=== PATIENT | female | born 1965 | race Two or more races ===

== ENCOUNTER 2023-01-04 15:00 | Inpatient (IN) | payer OTHER ==
[~2023-01-04] VITALS: Ht 152.4 cm; Wt 64.6 kg
[2023-01-04] MEDS ORDERED: ONDANSETRON HCL 4 MG/2 ML VIAL IV ONE ×2 (15:15→16:15)
[2023-01-04] MEDS ORDERED: SODIUM CHLORIDE 0.9% 1,000 ML IV ONE ×2 (15:15→16:15)
[2023-01-04 15:46] LABS: Basophils # (auto) 0.1 10 ^3/uL (0-0.2); Basophils % (auto) 0.6 % (0.0-2.0); Eosinophils # (auto) 0.4 10 ^3/uL (0-0.8); Eosinophils % (auto) 4.8 % (0.0-7.0); Hemoglobin 12.8 g/dL (12.2-16.2); Lymphocytes % (auto) 25.6 % (10.0-50.0); Mean Corpuscular Hemoglobin 30.9 pg (28.0-32.0); Mean Corpuscular Hgb Conc. 33.8 g/dL (32.0-36.0); Mean Corpuscular Volume 91.5 fL (80.0-100.0); Monocytes # (auto) 0.7 10 ^3/uL (0-1.3); Monocytes % (auto) 8.4 % (0.0-12.0); Neutrophils # (auto) 4.8 10 ^3/uL (1.6-8.6); Neutrophils % (auto) 60.6 % (37.0-80.0); Nucleated Red Blood Cells % 0.2 %; Red Blood Cells 4.15 10^6/uL (4.0-5.20); Red Cell Distribution Width 13.8 % (11.8-14.3); White Blood Cell 7.9 10^3/uL (4.4-10.8)
[2023-01-04 16:03] LABS: Alanine Aminotransferase 16 U/L (7-40); Albumin 4.3 g/dL (3.2-4.8); Alkaline Phosphatase 61 U/L (46-116); Anion Gap 8 (5-15); Aspartate Aminotransferase 10 U/L (13-40); BUN/Creatinine Ratio 19.7 (10.0-20.0); Bilirubin, Total 0.4 mg/dL (0.2-1.0); Blood Urea Nitrogen 14 mg/dL (9-23); Calcium 9.2 mg/dL (8.7-10.4); Carbon Dioxide 24 mmol/L (20-30); Chloride 107 mmol/L (98-107); Glucose 92 mg/dL (74-106); Lipase 57 U/L (12-53); Sodium 139 mmol/L (136-145)
[2023-01-04 16:04] LABS: Total Protein 6.7 g/dL (5.7-8.2)
[2023-01-04 16:11] LABS: Urine Bacteria NONE SEEN /hpf (None Seen); Urine Blood TRACE /uL (Negative); Urine Clarity Clear (Clear); Urine Color Yellow (Yellow); Urine Mucus FEW (None Seen); Urine Protein, UAD Negative (Negative); Urine Specific Gravity 1.016 (1.001-1.035); Urine Urobilinogen Normal (Negative); Urine WBC 1 /hpf (0 - 5); Urine pH 5.5 (5.0-8.0)
[2023-01-04] MEDS ORDERED: metroNIDAZOLE 500MG/100ML 100 ML IV ONE (16:15)
[2023-01-04] MEDS ORDERED: SODIUM CHLORIDE 0.9% 1,000 ML IVB ONE (16:15)
[2023-01-04] MEDS ORDERED: MORPHINE SULFATE 4 MG/ML SYR/VIAL IV ONE (16:15)
[2023-01-04] MEDS ORDERED: levoFLOXacin 500MG 100 ML IV ONE (16:15)
[2023-01-04 16:48] LABS: INR 0.98 (0.9-1.15); Partial Thromboplastin Time 29.9 SEC (24.5-34.5); Prothrombin Time 10.3 sec (9.3-11.8)
[2023-01-04] MEDS ORDERED: MORPHINE SULFATE INJ 2 MG/ml SYRG IV PRN (21:15)
[2023-01-04] MEDS: D5W/SOD CHL 0.45% 1,000 ML IV SCH (21:15)
[2023-01-04] MEDS ORDERED: ONDANSETRON HCL 4 MG/2 ML VIAL IV PRN (21:15)
[2023-01-04] MEDS ORDERED: ACETAMINOPHEN 325 MG TAB PO PRN (21:15)
[2023-01-04 21:30] VITALS: PULSE 82; RESP 18; O2SAT 98
[2023-01-04] MEDS: metroNIDAZOLE 500MG/100ML 100 ML IV SCH (22:51)
[2023-01-05] VITALS (7 sets, daily range): BP systolic 93–117; BP diastolic 39–70; PULSE 64–92; RESP 12–20; TEMP 96.3–98.1; O2SAT 94–99
[2023-01-05] MEDS: D5W/SOD CHL 0.45% 1,000 ML IV SCH ×3 (00:17→20:01)
[2023-01-05] MEDS ORDERED: GABA-339 PO (01:56)
[2023-01-05] MEDS ORDERED: HYDR-4072 PO (01:56)
[2023-01-05] MEDS ORDERED: DULO1CAP4 PO (01:56)
[2023-01-05] MEDS: metroNIDAZOLE 500MG/100ML 100 ML IV SCH ×3 (06:05→21:32)
[2023-01-05 07:06] LABS: Alanine Aminotransferase 12 U/L (7-40); Alkaline Phosphatase 46 U/L (46-116); Anion Gap 3 (5-15); BUN/Creatinine Ratio 12.3 (10.0-20.0); Blood Urea Nitrogen 8 mg/dL (9-23); Calcium 8.6 mg/dL (8.7-10.4); Carbon Dioxide 27 mmol/L (20-30); Chloride 111 mmol/L (98-107); Glucose 82 mg/dL (74-106); Potassium 3.8 mmol/L (3.5-5.1); Sodium 141 mmol/L (136-145)
[2023-01-05 07:07] LABS: Albumin 3.7 g/dL (3.2-4.8); Aspartate Aminotransferase < 8 U/L (13-40); Bilirubin, Total 0.5 mg/dL (0.2-1.0)
[2023-01-05 07:29] LABS: Basophils # (auto) 0 10 ^3/uL (0-0.2); Basophils % (auto) 0.8 % (0.0-2.0); Eosinophils # (auto) 0.5 10 ^3/uL (0-0.8); Eosinophils % (auto) 10.2 % (0.0-7.0); Hematocrit 35.6 % (36.0-46.0); Hemoglobin 12.3 g/dL (12.2-16.2); Lymphocytes # (auto) 1.6 10 ^3/uL (0.4-5.4); Lymphocytes % (auto) 34.3 % (10.0-50.0); Mean Corpuscular Hemoglobin 31.5 pg (28.0-32.0); Mean Corpuscular Hgb Conc. 34.5 g/dL (32.0-36.0); Mean Corpuscular Volume 91.2 fL (80.0-100.0); Monocytes # (auto) 0.5 10 ^3/uL (0-1.3); Monocytes % (auto) 11.3 % (0.0-12.0); Neutrophils % (auto) 43.4 % (37.0-80.0); Nucleated Red Blood Cells % 0.1 %; Red Cell Distribution Width 13.2 % (11.8-14.3); White Blood Cell 4.6 10^3/uL (4.4-10.8)
[2023-01-05] MEDS ORDERED: LIDOCAINE 1%-Mpf/Epinephrine 1:200,000 30ml VIAL ONE (07:48)
[2023-01-05] MEDS ORDERED: BUPIVACAINE HCL 0.25% P/F 10 ML VIAL ONE (07:48)
[2023-01-05] MEDS ORDERED: ceFAZolin 1GM/50ML 100 ML IV ONE (07:52)
[2023-01-05] MEDS ORDERED: SUGAMMADEX 200mg/2ml Vial (100MG/ML) IV ONE (08:03)
[2023-01-05] MEDS ORDERED: HYDROmorphone HCL 2 MG/ML VL/or syr ONE (08:03)
[2023-01-05] MEDS ORDERED: MIDAZOLAM HCL 2MG/2ML 2ml VIAL (1mg/ml) ONE (08:03)
[2023-01-05] MEDS ORDERED: GLYCOPYRROLATE 0.2 MG/ML 1ML VIAL ONE (08:03)
[2023-01-05] MEDS ORDERED: LIDOCAINE 2% (LOCAL ANESTH.) PF 5ml SDV ONE (08:03)
[2023-01-05] MEDS ORDERED: fentaNYL CITRATE 100 MCG/2 ML VL ONE (08:03)
[2023-01-05] MEDS ORDERED: DexAMETHasone SOD PHOS 10MG/1ML VIAL INJ ONE (08:03)
[2023-01-05] MEDS ORDERED: ONDANSETRON HCL 4 MG/2 ML VIAL ONE (08:03)
[2023-01-05] MEDS ORDERED: KETOROLAC TROMETH 60MG/2ML VIAL ONE (08:03)
[2023-01-05] MEDS ORDERED: ROCURONIUM 10MG/ML 10ML VIAL IV ONE (08:03)
[2023-01-05] MEDS ORDERED: PROPOFOL 10 MG/ML 20 ML IV ONE (08:03)
[2023-01-05] MEDS ORDERED: ePHEDrine SULFATE 50 MG/ML AMP ONE (08:03)
[2023-01-05] MEDS ORDERED: ONDANSETRON HCL 4 MG/2 ML VIAL IV PRN (09:30)
[2023-01-05] MEDS ORDERED: HYDROmorphone HCL 2 MG/ML VL/or syr IV PRN (09:30)
[2023-01-05] MEDS: HYDROmorphone HCL 2 MG/ML VL/or syr IV PRN ×2 (13:14→21:34)
[2023-01-05] MEDS: HYDROcodone-ACET 5/325MG TAB PO PRN (15:17)
[2023-01-06 05:00] VITALS: BP 95/59; PULSE 74; RESP 16; TEMP 97.8; O2SAT 94
[2023-01-06] MEDS: metroNIDAZOLE 500MG/100ML 100 ML IV SCH ×2 (05:23→13:45)
[2023-01-06 07:30] VITALS: BP 99/49; PULSE 73; RESP 20; TEMP 97.8; O2SAT 95
[2023-01-06] MEDS: HYDROmorphone HCL 2 MG/ML VL/or syr IV PRN ×2 (08:17→11:43)
[2023-01-06 08:30] VITALS: BP 99/46; PULSE 73; RESP 20; TEMP 97.8; O2SAT 95
[2023-01-06] MEDS: HYDROcodone-ACET 5/325MG TAB PO PRN (10:29)
[2023-01-06] MEDS ORDERED: DOCU-94 PO (10:30)
[2023-01-06] MEDS ORDERED: TRAM50TA2 PO (10:30)
[2023-01-06] MEDS ORDERED: CEPH500T PO (10:30)
[2023-01-06 12:44] VITALS: BP 99/80; PULSE 85; RESP 16
== END 2023-01-06 15:05 | disposition home or self-care (01) | DRG 337 ==
LOC: ER 15:00 → OVERFLOW 21:12 → EAST 23:22
PROVIDERS: ADMIT Nurse Practitioner Family; ATTEND Internal Medicine
PROC: 0DNW4ZZ Release Peritoneum, Percutaneous Endoscopic Approach (ICD-10-PCS; 2023-01-05)
PROC: 0DTJ4ZZ Resection of Appendix, Percutaneous Endoscopic Approach (ICD-10-PCS; principal; 2023-01-05 08:10)
DX: K35.80 Unspecified acute appendicitis (principal); G89.29 Other chronic pain; M19.90 Unspecified osteoarthritis, unspecified site; K66.0 Peritoneal adhesions (postprocedural) (postinfection); M54.2 Cervicalgia; I95.9 Hypotension, unspecified; R74.8 Abnormal levels of other serum enzymes; Z88.0 Allergy status to penicillin; Z98.1 Arthrodesis status; Z98.82 Breast implant status
CPT/HCPCS: 36415; 71045; 74176; 80053; 81001; 83605; 83690; 84484; 85025; 85610; 85730; 86850; 86900; 86901; 87040; 93005; G0378; J0690; J1100; J1885; J1956; J2001; J2250; J2405; J2704; J3490

== ENCOUNTER 2023-04-14 13:10 | Inpatient (IN) | payer OTHER ==
[~2023-04-14] VITALS: Ht 157.5 cm; Wt 23.4 kg
[~2023-04-14 13:10] MED LIST: CEPH500T PO; DOCU-94 PO; DULO1CAP4 PO; GABA-339 PO; HYDR-4072 PO; TRAM50TA2 PO
[2023-04-14] MEDS ORDERED: KETOROLAC TROMETH 60MG/2ML VIAL IM ONE (14:15)
[2023-04-14] MEDS ORDERED: ACETAMINOPHEN 650 mg PER 20.3 mL UD PO ONE (14:15)
[2023-04-14] MEDS ORDERED: SODIUM CHLORIDE 0.9% 1,000 ML IV ONE (14:15)
[2023-04-14] MEDS ORDERED: IOHEXOL 350 MG/ML 100ML IJ ONE (14:30)
[2023-04-14 14:42] LABS: Basophils # (auto) 0 10 ^3/uL (0-0.2); Basophils % (auto) 0.6 % (0.0-2.0); Eosinophils # (auto) 0.2 10 ^3/uL (0-0.8); Eosinophils % (auto) 3.9 % (0.0-7.0); Hematocrit 41.7 % (36.0-46.0); Hemoglobin 13.9 g/dL (12.2-16.2); Lymphocytes # (auto) 1.8 10 ^3/uL (0.4-5.4); Lymphocytes % (auto) 39.2 % (10.0-50.0); Mean Corpuscular Hemoglobin 30.6 pg (28.0-32.0); Mean Corpuscular Hgb Conc. 33.3 g/dL (32.0-36.0); Mean Corpuscular Volume 91.9 fL (80.0-100.0); Monocytes # (auto) 0.4 10 ^3/uL (0-1.3); Monocytes % (auto) 8.1 % (0.0-12.0); Neutrophils # (auto) 2.3 10 ^3/uL (1.6-8.6); Neutrophils % (auto) 48.2 % (37.0-80.0); Red Blood Cells 4.53 10^6/uL (4.0-5.20); Red Cell Distribution Width 12.9 % (11.8-14.3); White Blood Cell 4.7 10^3/uL (4.4-10.8)
[2023-04-14 14:58] LABS: Alanine Aminotransferase 17 U/L (7-40); Albumin 4.5 g/dL (3.2-4.8); Alkaline Phosphatase 60 U/L (46-116); Anion Gap 6 (5-15); Aspartate Aminotransferase 17 U/L (13-40); BUN/Creatinine Ratio 23.1 (10.0-20.0); Bilirubin, Total 0.3 mg/dL (0.2-1.0); Blood Urea Nitrogen 18 mg/dL (9-23); Calcium 9.9 mg/dL (8.5-10.1); Carbon Dioxide 26 mmol/L (20-30); Chloride 108 mmol/L (98-107); Glucose 89 mg/dL (74-106); INR 0.97 (0.9-1.15); Partial Thromboplastin Time 29.4 SEC (24.5-34.5); Potassium 4.1 mmol/L (3.5-5.1); Prothrombin Time 10.2 sec (9.3-11.8); Sodium 140 mmol/L (136-145); Total Protein 6.8 g/dL (5.7-8.2)
[2023-04-14 15:00] VITALS: PULSE 80; RESP 13; O2SAT 96
[2023-04-14] MEDS ORDERED: ACETAMINOPHEN IV 1000 MG/100ML (10MG/ML) IV ONE (15:45)
[2023-04-14 17:41] LABS: Amphetamine Screen, Urine Neg (NEGATIVE); Barbiturate Scree,Urine Neg (NEGATIVE); Benzodiazephine Screen, Urine Neg (NEGATIVE); Cannabinoid Screen, Urine Neg (NEGATIVE); Cocaine Screen, Urine Neg (NEGATIVE); Opiate Scree,Urine Neg (NEGATIVE)
[2023-04-14 17:42] LABS: Phencyclidine Screen, Urine Neg (NEGATIVE)
[2023-04-14 17:45] LABS: Urine Bacteria FEW /hpf (None Seen); Urine Blood Negative /uL (Negative); Urine Clarity Clear (Clear); Urine Color Colorless (Yellow); Urine Protein, UAD Negative (Negative); Urine Specific Gravity 1.031 (1.001-1.035); Urine Urobilinogen Normal (Negative); Urine WBC <1 /hpf (0 - 5)
[2023-04-14] MEDS ORDERED: MORPHINE SULFATE INJ 2 MG/ml SYRG IV PRN (17:45)
[2023-04-14] MEDS ORDERED: NITROGLYCERIN 0.4 MG SL TAB SL PRN (17:45)
[2023-04-14] MEDS ORDERED: ONDANSETRON HCL 4 MG/2 ML VIAL IV PRN (17:45)
[2023-04-14] MEDS ORDERED: DOCUSATE SOD 100 MG CAP PO PRN (17:45)
[2023-04-14] MEDS: SODIUM CHLORIDE 0.9% 1,000 ML IV SCH (18:39)
[2023-04-14] MEDS ORDERED: LORazepam 2MG/ML-1ML VIAL IV ONE (19:15)
[2023-04-14] MEDS ORDERED: ATORVASTATIN 20 MG TAB PO SCH (22:00)
[2023-04-14 23:40] VITALS: BP 116/75; PULSE 75; RESP 18; TEMP 97.8; O2SAT 96
[2023-04-15] MEDS ORDERED: HYDROcodone-ACET 7.5/325MG TAB PO ONE (00:15)
[2023-04-15 01:02] VITALS: BP 116/75; PULSE 74; RESP 18; TEMP 97.8; O2SAT 96
[2023-04-15] MEDS: SODIUM CHLORIDE 0.9% 1,000 ML IV SCH ×2 (02:06→10:25)
[2023-04-15 05:02] VITALS: BP 111/78; PULSE 77; RESP 18; TEMP 97.8; O2SAT 98
[2023-04-15 06:36] LABS: Basophils # (auto) 0 10 ^3/uL (0-0.2); Basophils % (auto) 0.6 % (0.0-2.0); Eosinophils # (auto) 0.3 10 ^3/uL (0-0.8); Eosinophils % (auto) 5.1 % (0.0-7.0); Hematocrit 41.6 % (36.0-46.0); Hemoglobin 13.5 g/dL (12.2-16.2); Lymphocytes # (auto) 1.5 10 ^3/uL (0.4-5.4); Lymphocytes % (auto) 28.5 % (10.0-50.0); Mean Corpuscular Hemoglobin 30.8 pg (28.0-32.0); Mean Corpuscular Hgb Conc. 32.5 g/dL (32.0-36.0); Mean Corpuscular Volume 94.5 fL (80.0-100.0); Monocytes # (auto) 0.4 10 ^3/uL (0-1.3); Monocytes % (auto) 8.2 % (0.0-12.0); Neutrophils % (auto) 57.6 % (37.0-80.0); Nucleated Red Blood Cells % 0.1 %; Red Cell Distribution Width 13.3 % (11.8-14.3); White Blood Cell 5.1 10^3/uL (4.4-10.8)
[2023-04-15 06:48] LABS: Alanine Aminotransferase 17 U/L (7-40); Albumin 4.1 g/dL (3.2-4.8); Alkaline Phosphatase 55 U/L (46-116); Anion Gap 6 (5-15); Aspartate Aminotransferase 18 U/L (13-40); BUN/Creatinine Ratio 23.3 (10.0-20.0); Blood Urea Nitrogen 17 mg/dL (9-23); Calcium 9.5 mg/dL (8.5-10.1); Carbon Dioxide 25 mmol/L (20-30); Chloride 111 mmol/L (98-107); Cholesterol 195 mg/dL (< 200); Glucose 81 mg/dL (74-106); HDL Cholesterol 57 mg/dL (40-59); LDL Cholesterol 119 mg/dL (< 100); Potassium 4.6 mmol/L (3.5-5.1); Sodium 142 mmol/L (136-145); Triglycerides 121 mg/dL (< 150)
[2023-04-15 06:49] LABS: Bilirubin, Total 0.5 mg/dL (0.2-1.0); Total Protein 6.3 g/dL (5.7-8.2)
[2023-04-15 08:00] VITALS: BP 109/70; PULSE 77; PULSE 79; RESP 15; TEMP 97.4; O2SAT 97
[2023-04-15 09:00] VITALS: BP 109/70; PULSE 79; RESP 15; TEMP 97.6; O2SAT 97
[2023-04-15] MEDS ORDERED: PANTOPRAZOLE 40 MG TAB PO SCH (10:00)
[2023-04-15] MEDS ORDERED: ASPirin 81 mg TAB PO SCH (10:00)
[2023-04-15 12:22] VITALS: BP 109/70; PULSE 79; RESP 15; TEMP 97.4; O2SAT 97
[2023-04-15 13:00] VITALS: BP 111/75; PULSE 76; RESP 15; TEMP 97.9; O2SAT 96
== END 2023-04-15 13:35 | disposition home or self-care (01) | DRG 93 ==
LOC: ER 13:10 → TELE 17:41 → TELE-CENTR 22:45
PROVIDERS: ADMIT Nurse Practitioner Family; ATTEND Nurse Practitioner Acute Care
DX: G92.9 Unspecified toxic encephalopathy (principal); G62.9 Polyneuropathy, unspecified; G56.00 Carpal tunnel syndrome, unspecified upper limb; G89.4 Chronic pain syndrome; Z79.82 Long term (current) use of aspirin; Z79.899 Other long term (current) drug therapy; Z88.0 Allergy status to penicillin; Z86.73 Personal history of transient ischemic attack (TIA), and cerebral infarction without residual deficits; Z82.3 Family history of stroke; Z83.3 Family history of diabetes mellitus; Z80.3 Family history of malignant neoplasm of breast; Z82.49 Family history of ischemic heart disease and other diseases of the circulatory system
CPT/HCPCS: 36415; 70450; 70496; 70551; 71045; 80053; 80061; 80307; 81001; 82140; 83880; 84443; 84484; 85025; 85610; 85730; 93005; 96361; 96372; 96374; 97163; 99291; G0378; J0131; J1885

== ENCOUNTER 2023-06-26 10:18 | Emergency (ER) | payer OTHER ==
[~2023-06-26] VITALS: Ht 154.9 cm; Wt 61.7 kg
[2023-06-26] MEDS: ACETAMINOPHEN 325 MG TAB PO ONE (11:19)
[2023-06-26] MEDS: LORazepam 0.5 MG TAB PO ONE (11:19)
[2023-06-26 11:22] LABS: Urine Bacteria None Seen /hpf (None Seen)
[2023-06-26] MEDS: IOHEXOL 350 MG/ML 100ML IJ ONE (11:34)
[2023-06-26 11:38] LABS: Basophils # (auto) 0 10 ^3/uL (0-0.2); Basophils % (auto) 0.6 % (0.0-2.0); Eosinophils # (auto) 0.1 10 ^3/uL (0-0.8); Eosinophils % (auto) 2.7 % (0.0-7.0); Hematocrit 40.1 % (36.0-46.0); Hemoglobin 13.4 g/dL (12.2-16.2); Lymphocytes # (auto) 1.3 10 ^3/uL (0.4-5.4); Lymphocytes % (auto) 34.4 % (10.0-50.0); Mean Corpuscular Hgb Conc. 33.4 g/dL (32.0-36.0); Mean Corpuscular Volume 92.8 fL (80.0-100.0); Monocytes # (auto) 0.4 10 ^3/uL (0-1.3); Neutrophils # (auto) 2.1 10 ^3/uL (1.6-8.6); Neutrophils % (auto) 53.3 % (37.0-80.0); Nucleated Red Blood Cells % 0.1 %; Red Blood Cells 4.32 10^6/uL (4.0-5.20); Red Cell Distribution Width 13.7 % (11.8-14.3); White Blood Cell 3.9 10^3/uL (4.4-10.8)
[2023-06-26 11:49] LABS: Amphetamine Screen, Urine Neg (NEGATIVE); Barbiturate Scree,Urine Neg (NEGATIVE); Benzodiazephine Screen, Urine Neg (NEGATIVE); Cocaine Screen, Urine Neg (NEGATIVE); Opiate Scree,Urine Neg (NEGATIVE)
[2023-06-26 11:50] LABS: Cannabinoid Screen, Urine Neg (NEGATIVE); Phencyclidine Screen, Urine Neg (NEGATIVE)
[2023-06-26 11:54] LABS: Alanine Aminotransferase 18 U/L (7-40); Albumin 4.5 g/dL (3.2-4.8); Alkaline Phosphatase 77 U/L (46-116); Anion Gap 7 (5-15); Aspartate Aminotransferase 25 U/L (13-40); BUN/Creatinine Ratio 12.7 (10.0-20.0); Blood Alcohol < 3.0 mg/dL (<10); Blood Urea Nitrogen 9 mg/dL (9-23); Calcium 9.5 mg/dL (8.5-10.1); Carbon Dioxide 26 mmol/L (20-30); Chloride 108 mmol/L (98-107); Glucose 93 mg/dL (74-106); Potassium 4.2 mmol/L (3.5-5.1); Sodium 141 mmol/L (136-145)
[2023-06-26 11:55] LABS: Bilirubin, Total 0.3 mg/dL (0.2-1.0); Total Protein 6.7 g/dL (5.7-8.2)
[2023-06-26 11:58] LABS: INR 0.98 (0.9-1.15); Prothrombin Time 10.3 sec (9.3-11.8)
[2023-06-26 12:02] LABS: Urine Blood Negative /uL (Negative); Urine Clarity Clear (Clear); Urine Color Colorless (Yellow); Urine Protein, UAD Negative (Negative); Urine Specific Gravity 1.004 (1.001-1.035); Urine Urobilinogen Normal (Negative); Urine WBC <1 /hpf (0 - 5)
[2023-06-26 15:27] VITALS: BP 141/86; PULSE 68; RESP 16; TEMP 98; O2SAT 99
== END 2023-06-26 15:29 | disposition home or self-care (01) ==
LOC: EEVIPCON 10:18 → ER 10:18
DX: R20.2 Paresthesia of skin (principal); Z86.73 Personal history of transient ischemic attack (TIA), and cerebral infarction without residual deficits; Z98.890 Other specified postprocedural states; Z88.8 Allergy status to other drugs, medicaments and biological substances; Z88.1 Allergy status to other antibiotic agents; Z86.2 Personal history of diseases of the blood and blood-forming organs and certain disorders involving the immune mechanism; Z79.899 Other long term (current) drug therapy
CPT/HCPCS: 36415; 70450; 70496; 71045; 80053; 80307; 80320; 81001; 82962; 83735; 83880; 84443; 84484; 85025; 85610; 85730; 93005; 99285; Q9967

== ENCOUNTER 2024-02-17 14:14 | Emergency (ER) | payer OTHER ==
[~2024-02-17] VITALS: Ht 154.9 cm; Wt 65.0 kg
--- NOTE | 2024-02-17 15:38 | ECG ---
[facility] Test Date: 2024-02-17 Test Time: 15:35:34 Pat Name: ENRIQUE KING Department: ER Room: Gender: F [employer] Builder: [id number] : [id number] Requested By: SHELL ALACNTAR Order Number: [id number] Reading MD: Hussein Johnson Measurements Intervals [place] Rate: 72 P: 70 NH: 153 QRS: 69 QRSD: 106 T: 65 QT: 393 QTc: 431 Interpretive Statements Sinus rhythm LAE, consider biatrial enlargement RSR' in V1 or V2, right VCD or RVH Baseline wander in lead(s) I,aVR Electronically Signed On 02-18-2024 16:24:52 PST by Hussein Johnson Please click the below link to view image of tracing.
--- NOTE | 2024-02-17 15:40 | ED.PDOC ---
Efraín. trauma (HPI) HPI Comments HPI: Poor Historian. 58-year-old female presents to the ED for evaluation of a mechanical fall off of a 6 ft ladder. She landed on her face down. No loss of consciousness. Patient is on aspirin. Patient complains of nose pain and left-sided body aches. Complains of left mid forearm pain and minimal left ankle pain. Patient is ambulating independently. No apparent deformity or active bleeding. Denies any other acute focal neurological deficits. Patient had a nosebleed earlier but is currently resolved spontaneously. Patient took 10 mg of [place] prior to arrival at noon today. Vitals: Temp: 98.0 F RR: 18 02 sat: 97% on room air HR: 75 BP: 125/81 PMH: anemia, thyroid disease, seizures PSH: Appendectomy, History of cervical spine surgery Social history: denies tobacco use, denies ETOH use, denies drug use Meds: gabapentin, norco, aspirin, levothyroxine allergies: penicillins REVIEW OF SYSTEMS: CONSTITUTIONAL: Denies acute: fever, diaphoresis, chills, generalized weakness. HEAD: Denies acute: photophobia Eyes: Denies acute: Double vision, vision loss, eye pain, eye discharge. EARS: Denies acute: tinnitus, hearing loss, ear discharge, ear pain, THROAT: Denies acute: sore throat, swelling, difficulty swallowing , pain with swallowing, change in voice. NECK: Denies acute: neck pain, neck swelling, stiff neck. HEART: Denies acute : chest pain, palpitations, LUNGS: Denies acute: SOB, wheezing, cough, hemoptysis ABDOMEN: Denies acute: abdominal pain, Nausea, Vomiting, diarrhea, melena , hematemesis, hematochezia SKIN: Denies acute: rash, redness, lesions, itchiness. EXTREMITIES: Denies acute: calf pain, numbness, tingling, weakness, Denies acute: Low back pain. Neuro: Denies acute: focal neurological deficit, motor or sensory focal neurological deficit, tremors, seizure like activity, confusion, dizziness, change in mental status, loss of bowel or bladder function, cauda equina like symptoms. : Denies acute: dysuria, hematuria, flank pain, increase in urinary frequency. PSYCH: Denies acute: hallucination, suicidal ideation, homicidal ideation. FEMALE: Denies acute: abnormal vaginal bleeding, foul odor, unusual discharge. PHYSICAL EXAM: General: no acute distress, awake and alert. Head: normocephalic, atraumatic. Neck: supple, trachea is midline, no swelling. Cervical spine: Palpation of the posterior midline of the cervical spine reveals no focal swelling, erythema, focal tenderness to palpation. Patient has normal range of motion. Palpation of the remainder of the thoracic and lumbar spine reveals no focal tenderness to palpation or swelling. Throat: Normal phonation. No apparent oral trauma. Eyes:, no erythema, no purulent discharge, no proptosis, no icterus. Heart: regular rate, regular rhythm, no significant murmur appreciated. Lungs: no apparent respiratory distress, Able to speak in full sentences. No wheezing, no rhonchi, no crackles. No stridors Clear to auscultation bilaterally. Abdomen: non tender to palpation, non distended, soft, no guarding, no rebound, + bowel sounds. Neuro: Awake, Alert, oriented to name, self, situation, follows commands GCS=15. Speech is normal. Skin: no petechia, no purpura, no cyanosis, non-pale, not jaundice. Lower extremities: --no - Pitting edema no deformity, no focal swelling, no calf TTP. Noted left mid forearm small hematoma. Patient is neurovascularly intact in all four extremities. The pedal pulses and bilateral radial pulses are palpable. Motor and sensory are present throughout. Makes eye contact. moves all four extremities. Face: no apparent facial droop. No CVA tenderness to percussion bilaterally. Ambulating in the ED independently. PERRLA, EOM-I CN 2-12 are grossly intact, Pedal pulses are palpable. No nystagmus. No nuchal rigidity, Kernig's sign, Brudzinski's sign, no meningeal signs. Chief Complaint: Fall Injury Time Seen by MD: 15:20 Primary Care Provider: RADHA Reviewed notes: Nurses Notes, Medications, Allergies Allergies: Coded Allergies: Penicillins (Verified Allergy, Unknown, 01/04/23) Home Meds Active Scripts Tramadol Hcl (Tramadol Hcl) 50 Mg Tab, 50 MG PO TID PRN for 6 Days, #18 TAB Prov:MARITA ADAMS MD 01/06/23 Docusate Sodium (Colace) 100 Mg Cap, 1 CAP PO BID PRN for 10 Days, #40 CAP Prov:MARITA ADAMS MD 01/06/23 Cephalexin Monohydrate (Cephalexin) 500 Mg Tab, 1 TAB PO TID for 7 Days, #21 TAB Prov:MARITA ADAMS MD 01/06/23 Reported Medications Gabapentin (Gabapentin) 600 Mg Tab, 1 TAB PO TID for pinch neve pain 01/05/23 Hydrocodone-Acetaminophen (Hydrocodone/Acetaminophen 10-325 mg) 1 Tab Tab, 1 TAB PO QID PRN for pain 01/05/23 Duloxetine HCl (Duloxetine HCl) 20 Mg Cap, 1 CAP PO BID for pinch nerve 01/05/23 Information Source: Patient Past Medical History PAST MEDICAL HISTORY: Anemia Surgical History: Appendectomy SOAP INSPECTOR History: No Pertinent SOAP INSPECTOR History Family History Family History: Reviewed,noncontributory to illness Social History Smoker: Non-Smoker Alcohol: Denies ETOH Use Drugs: Denies Drug Use Lives In: Home Was a procedure done? Was a procedure done?: No Differential Diagnosis Multiple Trauma: Closed Head Injury, Cardiac Injury, Fractures, Intraabdominal Injury, Pneumothorax, Cerebral Contusion, Pulmonary Contusion, Spine Injury, Tracheal Injury, Urological Injury, Vascular Injury, Abrasions, Contusion, Foreign Body, Hematoma, Laceration Neck Injury: Cervical Muscle Spasm, Cervical Sprain, Cervical Strain, Cervical Fracture, Spinal Cord Injury X-Ray, Labs, Meds, VS Vital Signs Date Time Temp Pulse Resp B/P (MAP) Pulse Ox O2 Delivery O2 Flow Rate FiO2 02/17/24 18:53 77 17 97 Room Air 02/17/24 18:53 98.7 77 17 134/62 (86) 98 98.7 02/17/24 15:35 72 02/17/24 15:12 98.0 75 18 125/81 (96) 97 Lab Test 02/17/24 18:15 02/17/24 18:07 02/17/24 16:24 Range/Units Urine Color Yellow Yellow Urine Clarity Clear Clear Urine pH 6.0 5.0-9.0 Urine Specific [place] 1.032 1.001-1.035 Urine Protein Trace H Negative Urine Ketones Negative Negative Urine Blood Negative Negative /uL Urine Nitrite Negative Negative Urine Bilirubin Negative Negative Urine Urobilinogen Normal Negative mg/dL Urine Leukocyte Esterase Negative Negative /uL Urine RBC <1 0 - 4 /hpf Urine WBC 1 0 - 5 /hpf Urine Squamous Epithelial Cells Few <5 /hpf Urine Bacteria None seen None Seen /hpf Urine Mucus Few None Seen Urine Glucose Normal Normal mg/dL Troponin I High Sensitivity < 3 L 3 L </=34 ng/L White Blood Count 6.2 4.4-10.8 10^3/uL Red Blood Count 4.57 4.0-5.20 10^6/uL Hemoglobin 14.1 12.2-16.2 g/dL Hematocrit 42.7 36.0-46.0 % Mean Corpuscular Volume 93.5 80.0-100.0 fL Mean Corpuscular Hemoglobin 30.9 28.0-32.0 pg Mean Corpuscular Hemoglobin Concent 33.0 32.0-36.0 g/dL Red Cell Distribution Width 14.1 11.8-14.3 % Platelet Count 237 140-450 10^3/uL Mean Platelet Volume 7.3 6.9-10.8 fL Neutrophils (%) (Auto) 60.9 37.0-80.0 % Lymphocytes (%) (Auto) 27.4 10.0-50.0 % Monocytes (%) (Auto) 7.7 0.0-12.0 % Eosinophils (%) (Auto) 3.5 0.0-7.0 % Basophils (%) (Auto) 0.5 0.0-2.0 % Neutrophils # (Auto) 3.8 1.6-8.6 10 ^3/uL Lymphocytes # (Auto) 1.7 0.4-5.4 10 ^3/uL Monocytes # (Auto) 0.5 0-1.3 10 ^3/uL Eosinophils # (Auto) 0.2 0-0.8 10 ^3/uL Basophils # (Auto) 0 0-0.2 10 ^3/uL Nucleated Red Blood Cells 0.1 % Sodium Level 144 136-145 mmol/L Potassium Level 4.0 3.5-5.1 mmol/L Chloride Level 111 H 98-107 mmol/L Carbon Dioxide Level 24 20-31 mmol/L Anion Gap 9 5-15 Blood Urea Nitrogen 20 9-23 mg/dL Creatinine 0.92 0.550-1.02 mg/dL Glomerular Filtration Rate Calc 71 >90 mL/min BUN/Creatinine Ratio 21.7 H 10.0-20.0 Serum Glucose 87 74-106 mg/dL Lactic Acid Level 0.8 0.4-2.0 mmol/L Calcium Level 10.1 8.7-10.4 mg/dL Total Bilirubin 0.2 0.2-1.0 mg/dL Aspartate Amino Transferase (AST) 24 13-40 U/L Alanine Aminotransferase (ALT) 30 7-40 U/L Alkaline Phosphatase 78 46-116 U/L Creatine Kinase 133 34-145 U/L Total Protein 6.9 5.7-8.2 g/dL Albumin 4.5 3.2-4.8 g/dL [place] [address] Ph: [phone] DIAGNOSTIC IMAGING Diagnostic Imaging Report : [id number] Signed PATIENT: ENRIQUE KING ACCT: [id number] UNIT: [id number] : 1965 LOC: ER ROOM / BED: / AGE / SEX: 58 / F ADM STATUS: REG ER SERVICE 1528 ORDERING PHYSICIAN: SHELL ALCANTAR DO PROCEDURE(s): LANKL - L ANKLE 3 VIEW REASON: FALL INJURY ORDER NUMBER(s): [id number], ACCESSION NUMBER(s): [id number] CLINICAL INDICATION: FALL INJURY TECHNIQUE: 3 radiographic views of the left ankle were obtained. Comparison: None FINDINGS/IMPRESSION: There is no evidence of acute fracture or dislocation. The visualized joint space is well maintained. Small plantar calcaneal bony spur. The alignment is anatomical. There is no radiopaque foreign body. ATED BY: YANET TOMPKINS DO DICTATED DATE/TIME: 02/17/24 163 SIGNED BY: YANET TOMPKINS DO SIGNED DATE/TIME: 02/17/24 163 CC: [address] [address] Ph: [phone] DIAGNOSTIC IMAGING Diagnostic Imaging Report : [id number] Signed PATIENT: ENRIQUE KING ACCT: [id number] UNIT: [id number] : 1965 LOC: ER ROOM / BED: / AGE / SEX: 58 / F ADM STATUS: REG ER SERVICE 1528 ORDERING PHYSICIAN: SHELL ALCANTAR DO PROCEDURE(s): CS2 - CERVICAL WITHOUT CONTRAST REASON: FALL INJURY ORDER NUMBER(s): [id number], ACCESSION NUMBER(s): [id number] CT CERVICAL WITHOUT CONTRAST INDICATION: FALL INJURY EXAM DATE: 02/17/2024 04:06 PM COMPARISON: CT HEAD WITHOUT CONTRAST on DOS: 04/14/23 RADIATION DOSE: CTDIvol: 21 mGy, DLP: 622 mGy*cm PROCEDURE: Utilizing the CT scanner, contiguous axial images were obtained through the cervical spine. Coronal and sagittal reformatted images were then generated. All CT scans at this medical facility are performed using dose modulation techniques as appropriate to a performed exam including the following: Automated exposure control was utilized; adjustment of the MA and/or KV according to patient size; and use of iterative reconstruction technique. FINDINGS: Alignment at the craniocervical junction is maintained. C5-7 spinal hardware and disc replacement is noted. The cortical margins are intact. The vertebral body heights and cervical alignment are normal. The facet joints show normal alignment without fracture. The intervertebral disc spaces are narrow and degenerative. The paraspinal soft tissues appear normal. On axial images: there is multilevel posterior disc osteophyte complex with mild central canal narrowing at C5-6 with moderate bilateral neural foramina narrowing. Facet and uncincate spondylosis is seen. IMPRESSION: No cervical spine fracture or subluxation. ATED BY: SATHYA IGLESIAS MD DICTATED DATE/TIME: 02/17/241655 SIGNED BY: SATHYA IGLESIAS MD SIGNED DATE/TIME: 02/17/241655 CC: [place] [address] Ph: [phone] DIAGNOSTIC IMAGING Diagnostic Imaging Report : [id number] Signed PATIENT: ENRIQUE KING ACCT: [id number] UNIT: [id number] : 1965 LOC: ER ROOM / BED: / AGE / SEX: 58 / F ADM STATUS: REG ER SERVICE 1528 ORDERING PHYSICIAN: SHELL ALCANTAR DO PROCEDURE(s): LFOR - L FOREARM XRAY REASON: FALL INJURY ORDER NUMBER(s): [id number], ACCESSION NUMBER(s): [id number] CLINICAL INDICATION: FALL INJURY TECHNIQUE: 2 radiographic views of the left forearm were obtained. Comparison: None FINDINGS/IMPRESSION: There is no evidence of acute fracture or dislocation. The visualized joint space is well maintained. The alignment is anatomical. There is no radiopaque foreign body. Soft tissue edema over the dorsum of the proximal forearm. ATED BY: YANET TOMPKINS DO DICTATED DATE/TIME: 02/17/24 163 SIGNED BY: YANET TOMPKINS DO SIGNED DATE/TIME: 02/17/24 163 CC: [place] [address] Ph: [phone] DIAGNOSTIC IMAGING Diagnostic Imaging Report : [id number] Signed PATIENT: ENRIQUE KING ACCT: [id number] UNIT: [id number] : 1965 LOC: ER ROOM / BED: / AGE / SEX: 58 / F ADM STATUS: REG ER SERVICE 1528 ORDERING PHYSICIAN: SHELL ALCANTAR DO PROCEDURE(s): HWOCT - HEAD WITHOUT CONTRAST REASON: FALL INJURY ORDER NUMBER(s): [id number], ACCESSION NUMBER(s): [id number] CT HEAD WITHOUT CONTRAST INDICATION: FALL INJURY EXAM DATE: 02/17/2024 04:06 PM COMPARISON: CT STROKE CTH on DOS: 06/26/23, MRI BRAIN HEAD WO CONTRAST on DOS: 04/14/23, CT HEAD WITHOUT CONTRAST on DOS: 04/14/23 RADIATION DOSE: CTDIvol: 54 mGy, DLP: 962 mGy*cm PROCEDURE: CT scans of the head were obtained from the vertex to the skull base. Sagittal and coronal reconstructions were provided. All CT scans at this medical facility are performed using dose modulation techniques as appropriate to a performed exam including the following: Automated exposure control was utilized; adjustment of the MA and/or KV according to patient size; and use of iterative reconstruction technique. FINDINGS: The brain shows normal morphology and monet-white matter differentiation, without intracranial hemorrhage, extra-axial fluid collection, mass effect or acute large vessel infarct. The ventricles are normal in size. The basal cisterns are patent. The skull and visible facial bones are intact. The paranasal sinuses, mastoid air cells and middle ear cavities are well- aerated. The soft tissues of the scalp are unremarkable. IMPRESSION: No acute intracranial abnormality. ATED BY: SATHYA IGLESIAS MD DICTATED DATE/TIME: 02/17/241632 SIGNED BY: SATHYA IGLESIAS MD SIGNED DATE/TIME: 02/17/241632 CC: [place] [address] Ph: [phone] DIAGNOSTIC IMAGING Diagnostic Imaging Report : [id number] Signed PATIENT: ENRIQUE KING ACCT: [id number] UNIT: [id number] : 1965 LOC: ER ROOM / BED: / AGE / SEX: 58 / F ADM STATUS: REG ER SERVICE 1528 ORDERING PHYSICIAN: SHELL ALCANTAR DO PROCEDURE(s): FAC2C - MAXILLOFACIAL WITHOUT REASON: FALL INJURY ORDER NUMBER(s): [id number], ACCESSION NUMBER(s): [id number] Procedure: CT MAXILLOFACIAL WITHOUT Study Date and Requested Time: 02/17/2024 04:06 PM History: FALL INJURY Comparison: CT angiography Head and neck 06/26/2011 Dose: CTDI: 21.66 mGy DLP: 622.24 mGycm Technique: Multiplanar images obtained through the face without intravenous contrast. Findings: No evidence of acute fracture or other significant osseous abnormality. Chronic fracture of the maxillary spine . Orbits and globes grossly unremarkable. Minimal mucoperiosteal thickening of the ethmoid and maxillary sinuses. The remainder of the paranasal sinuses are clear. The mastoids are clear. Nasal septum midline position. Nasal cavity and visualized nasopharynx and oropharynx grossly unremarkable with no evidence of focal lesion. Surrounding facial soft tissues grossly unremarkable with no evidence of soft tissue swelling or mass. Postsurgical changes of C5-C6 and C6-C7. Impression: Unremarkable maxillofacial CT. ATED BY: YANET TOMPKINS DO DICTATED DATE/TIME: 02/17/241650 SIGNED BY: YANET TOMPKINS DO SIGNED DATE/TIME: 02/17/241650 CC: [address] [id number] Ph: [phone] DIAGNOSTIC IMAGING Diagnostic Imaging Report : [id number] Signed PATIENT: ENRIQUE KING ACCT: [id number] UNIT: [id number] : 1965 LOC: ER ROOM / BED: / AGE / SEX: 58 / F ADM STATUS: REG ER SERVICE 1539 ORDERING PHYSICIAN: SHELL ALCANTAR DO PROCEDURE(s): CTCAP - CHST AB PEL WO CON-NO IV/ORAL REASON: FALL INJURY ORDER NUMBER(s): [id number], ACCESSION NUMBER(s): [id number] Procedure: CT CHST AB PEL WO CON-NO IV/ORAL 02/17/2024 04:06 PM Indication: FALL INJURY Comparison Study: None available at time of dictation. Technique: Axial images were obtained and reformatted in coronal and sagittal planes. All CT scans at this medical facility are performed using dose modulation techniques as appropriate to a performed exam including the following: Automated exposure control was utilized; adjustment of the MA and/or KV according to patient size; and use of iterative reconstruction technique. CT Dose: CTDI volume is 66.03 mGy. Dose-length product is 3676.6 mGy*cm FINDINGS: Lower neck: Unremarkable. Cardiomediastinal: The heart is normal in size. Aorta is normal in caliber. No mediastinal lymphadenopathy. Lungs: No focal pulmonary opacity. No pleural effusion. No pneumothorax. Hepatobiliary: Unremarkable. Spleen: Unremarkable. Pancreas: Unremarkable. Adrenal Glands: Unremarkable. tract: The kidneys are normal in size bilaterally without hydronephrosis or nephrolithiasis. The urinary bladder is unremarkable. GI tract: The stomach is grossly normal in appearance. No evidence of small bowel obstruction. Scattered colonic diverticula are noted without evidence of diverticulitis. The appendix is not identified. Surgical clips in the right lower quadrant suggesting prior appendectomy. Lymphatics: No mesenteric, retroperitoneal or periportal lymphadenopathy. Vasculature: The abdominal aorta is normal in in caliber. Pelvic Organs: Unremarkable. Bones/soft tissues: No acute osseous abnormality noted. Mild degenerative grade 1 anterolisthesis of L4 on L5. Multilevel degenerative disc disease and posterior facet arthropathy of the lower lumbar spine noted. Postoperative changes of the lower cervical spine. Other: None. IMPRESSION: 1. No acute traumatic injury in the chest, abdomen or pelvis. ATED BY: HATTIE TAMAYO MD DICTATED DATE/TIME: 02/17/241653 SIGNED BY: HATTIE TAMAYO MD SIGNED DATE/TIME: 02/17/241653 CC: Time of 1ST Reevaluation: 00:00 Reevaluation 1ST: Improved Patient Education/Counseling: Diagnosis, Treatment Family Education/Counseling: Diagnosis, Treatment Comments Patient presented with the above HPI.-fall/trauma----workup was initiated. patient was found with the above mentioned diagnosis. Patient ED course and VS have been stabilized. Patient has been reassessed in the ED and remained in a stable condition. Pertinent incidental findings were discussed with the patient and/or family. Patient/family voices understanding and is agreeable with plan. Patient has been observed in the ED adequate length of time to insure improvement/stability. patient was discharged home in a stable condition. All the reports of any imaging studies that were ordered by myself were reviewed by myself. Departure 1 Departure Time of Disposition: 18:56 Impression: Primary Impression: Fall Additional Impressions: Closed head injury Facial contusion Hematoma of left forearm Disposition: 01 HOME / SELF CARE / HOMELESS Condition: Stable Additional Instructions: Additional discharge instructions: You MUST follow-up with your primary care/family doctor in 1 to 2 days. If you are unable to see your primary care/family doctor, please return to our emergency room for re-assessment and re-evaluation in 1 to 2 days. Return to the emergency room here in our facility or to the nearest ER [facility] if your symptoms change or worsen. CONSULTATIONS: you MUST Follow-up for consultation as soon as possible with: -neurology in 1-2 days. Please call for appointment You MUST call the consultants office yourself to make an appointment. You may need to arrange that through your insurance and/or your primary/family doctor. If you are unable to see the neuropsychology medical consultant in 1 to 2 days, you must return to our emergency room (or any other ER of your choice) for re-assessment and re- evaluation. Adequate fluid hydration. Below is a copy of your radiological report for follow up: [place] [id number] Ph: [phone] DIAGNOSTIC IMAGING Diagnostic Imaging Report : [id number] Signed PATIENT: ENRIQUE KING ACCT: [id number] UNIT: [id number] : 1965 LOC: ER ROOM / BED: / AGE / SEX: 58 / F ADM STATUS: REG ER SERVICE 1528 ORDERING PHYSICIAN: SHELL ALCANTAR DO PROCEDURE(s): LANKL - L ANKLE 3 VIEW REASON: FALL INJURY ORDER NUMBER(s): [id number], ACCESSION NUMBER(s): [id number] CLINICAL INDICATION: FALL INJURY TECHNIQUE: 3 radiographic views of the left ankle were obtained. Comparison: None FINDINGS/IMPRESSION: There is no evidence of acute fracture or dislocation. The visualized joint space is well maintained. Small plantar calcaneal bony spur. The alignment is anatomical. There is no radiopaque foreign body. ATED BY: YANET TOMPKINS DO DICTATED DATE/TIME: 02/17/24 1630 SIGNED BY: YANET TOMPKINS DO SIGNED DATE/TIME: 02/17/24 1630 CC: [place] [id number] Ph: [phone] DIAGNOSTIC IMAGING Diagnostic Imaging Report : [id number] Signed PATIENT: ENRIQUE KING ACCT: [id number] UNIT: [id number] : 1965 LOC: ER ROOM / BED: / AGE / SEX: 58 / F ADM STATUS: REG ER SERVICE 1528 ORDERING PHYSICIAN: SHELL ALCANTAR DO PROCEDURE(s): CS2 - CERVICAL WITHOUT CONTRAST REASON: FALL INJURY ORDER NUMBER(s): [id number], ACCESSION NUMBER(s): [id number] CT CERVICAL WITHOUT CONTRAST INDICATION: FALL INJURY EXAM DATE: 02/17/2024 04:06 PM COMPARISON: CT HEAD WITHOUT CONTRAST on DOS: 04/14/23 RADIATION DOSE: CTDIvol: 21 mGy, DLP: 622 mGy*cm PROCEDURE: Utilizing the CT scanner, contiguous axial images were obtained through the cervical spine. Coronal and sagittal reformatted images were then generated. All CT scans at this medical facility are performed using dose modulation techniques as appropriate to a performed exam including the following: Automated exposure control was utilized; adjustment of the MA and/or KV according to patient size; and use of iterative reconstruction technique. FINDINGS: Alignment at the craniocervical junction is maintained. C5-7 spinal hardware and disc replacement is noted. The cortical margins are intact. The vertebral body heights and cervical alignment are normal. The facet joints show normal alignment without fracture. The intervertebral disc spaces are narrow and degenerative. The paraspinal soft tissues appear normal. On axial images: there is multilevel posterior disc osteophyte complex with mild central canal narrowing at C5-6 with moderate bilateral neural foramina narrowing. Facet and uncincate spondylosis is seen. IMPRESSION: No cervical spine fracture or subluxation. ATED BY: SATHYA IGLESIAS MD DICTATED DATE/TIME: 02/17/241655 SIGNED BY: SATHYA IGLESIAS MD SIGNED DATE/TIME: 02/17/241655 CC: [place] [address] Ph: [phone] DIAGNOSTIC IMAGING Diagnostic Imaging Report : [id number] Signed PATIENT: ENRIQUE KING ACCT: [id number] UNIT: [id number] : 1965 LOC: ER ROOM / BED: / AGE / SEX: 58 / F ADM STATUS: REG ER SERVICE 1528 ORDERING PHYSICIAN: SHELL ALCANTAR DO PROCEDURE(s): LFOR - L FOREARM XRAY REASON: FALL INJURY ORDER NUMBER(s): [id number], ACCESSION NUMBER(s): [id number] CLINICAL INDICATION: FALL INJURY TECHNIQUE: 2 radiographic views of the left forearm were obtained. Comparison: None FINDINGS/IMPRESSION: There is no evidence of acute fracture or dislocation. The visualized joint space is well maintained. The alignment is anatomical. There is no radiopaque foreign body. Soft tissue edema over the dorsum of the proximal forearm. ATED BY: YANET TOMPKINS DO DICTATED DATE/TIME: 02/17/24 1631 SIGNED BY: YANET TOMPKINS DO SIGNED DATE/TIME: 02/17/24 1631 CC: [place] [id number] Ph: [phone] DIAGNOSTIC IMAGING Diagnostic Imaging Report : [id number] Signed PATIENT: ENRIQUE KING ACCT: [id number] UNIT: [id number] : 1965 LOC: ER ROOM / BED: / AGE / SEX: 58 / F ADM STATUS: REG ER SERVICE 1528 ORDERING PHYSICIAN: SHELL ALCANTAR DO PROCEDURE(s): HWOCT - HEAD WITHOUT CONTRAST REASON: FALL INJURY ORDER NUMBER(s): [id number], ACCESSION NUMBER(s): [id number] CT HEAD WITHOUT CONTRAST INDICATION: FALL INJURY EXAM DATE: 02/17/2024 04:06 PM COMPARISON: CT STROKE CTH on DOS: 06/26/23, MRI BRAIN HEAD WO CONTRAST on DOS: 04/14/23, CT HEAD WITHOUT CONTRAST on DOS: 04/14/23 RADIATION DOSE: CTDIvol: 54 mGy, DLP: 962 mGy*cm PROCEDURE: CT scans of the head were obtained from the vertex to the skull base. Sagittal and coronal reconstructions were provided. All CT scans at this medical facility are performed using dose modulation techniques as appropriate to a performed exam including the following: Automated exposure control was utilized; adjustment of the MA and/or KV according to patient size; and use of iterative reconstruction technique. FINDINGS: The brain shows normal morphology and monet-white matter differentiation, without intracranial hemorrhage, extra-axial fluid collection, mass effect or acute large vessel infarct. The ventricles are normal in size. The basal cisterns are patent. The skull and visible facial bones are intact. The paranasal sinuses, mastoid air cells and middle ear cavities are well- aerated. The soft tissues of the scalp are unremarkable. IMPRESSION: No acute intracranial abnormality. ATED BY: SATHYA IGLESIAS MD DICTATED DATE/TIME: 02/17/24 1633 SIGNED BY: SATHYA IGLESIAS MD SIGNED DATE/TIME: 02/17/24 163 CC: [place] [id number] Ph: [phone] DIAGNOSTIC IMAGING Diagnostic Imaging Report : [id number] Signed PATIENT: ENRIQUE KING ACCT: [id number] UNIT: [id number] : 1965 LOC: ER ROOM / BED: / AGE / SEX: 58 / F ADM STATUS: REG ER SERVICE [id number] ORDERING PHYSICIAN: SHELL ALCANTAR DO PROCEDURE(s): FAC2C - MAXILLOFACIAL WITHOUT REASON: FALL INJURY ORDER NUMBER(s): [id number], ACCESSION NUMBER(s): [id number] Procedure: CT MAXILLOFACIAL WITHOUT Study Date and Requested Time: 02/17/2024 04:06 PM History: FALL INJURY Comparison: CT angiography Head and neck 06/26/2011 Dose: CTDI: 21.66 mGy DLP: 622.24 mGycm Technique: Multiplanar images obtained through the face without intravenous contrast. Findings: No evidence of acute fracture or other significant osseous abnormality. Chronic fracture of the maxillary spine . Orbits and globes grossly unremarkable. Minimal mucoperiosteal thickening of the ethmoid and maxillary sinuses. The remainder of the paranasal sinuses are clear. The mastoids are clear. Nasal septum midline position. Nasal cavity and visualized nasopharynx and oropharynx grossly unremarkable with no evidence of focal lesion. Surrounding facial soft tissues grossly unremarkable with no evidence of soft tissue swelling or mass. Postsurgical changes of C5-C6 and C6-C7. Impression: Unremarkable maxillofacial CT. ATED BY: YANET TOMPKINS DO DICTATED DATE/TIME: 02/17/241650 SIGNED BY: YANET TOMPKINS DO SIGNED DATE/TIME: 02/17/241650 CC: [address] [id number] Ph: [phone] DIAGNOSTIC IMAGING Diagnostic Imaging Report : [id number] Signed PATIENT: ENRIQUE KING ACCT: [id number] UNIT: [id number] : 1965 LOC: ER ROOM / BED: / AGE / SEX: 58 / F ADM STATUS: REG ER SERVICE 1539 ORDERING PHYSICIAN: SHELL ALCANTAR DO PROCEDURE(s): CTCAP - CHST AB PEL WO CON-NO IV/ORAL REASON: FALL INJURY ORDER NUMBER(s): [id number], ACCESSION NUMBER(s): [id number] Procedure: CT CHST AB PEL WO CON-NO IV/ORAL 02/17/2024 04:06 PM Indication: FALL INJURY Comparison Study: None available at time of dictation. Technique: Axial images were obtained and reformatted in coronal and sagittal planes. All CT scans at this medical facility are performed using dose modulation techniques as appropriate to a performed exam including the following: Automated exposure control was utilized; adjustment of the MA and/or KV according to patient size; and use of iterative reconstruction technique. CT Dose: CTDI volume is 66.03 mGy. Dose-length product is 3676.6 mGy*cm FINDINGS: Lower neck: Unremarkable. Cardiomediastinal: The heart is normal in size. Aorta is normal in caliber. No mediastinal lymphadenopathy. Lungs: No focal pulmonary opacity. No pleural effusion. No pneumothorax. Hepatobiliary: Unremarkable. Spleen: Unremarkable. Pancreas: Unremarkable. Adrenal Glands: Unremarkable. tract: The kidneys are normal in size bilaterally without hydronephrosis or nephrolithiasis. The urinary bladder is unremarkable. GI tract: The stomach is grossly normal in appearance. No evidence of small bowel obstruction. Scattered colonic diverticula are noted without evidence of diverticulitis. The appendix is not identified. Surgical clips in the right lower quadrant suggesting prior appendectomy. Lymphatics: No mesenteric, retroperitoneal or periportal lymphadenopathy. Vasculature: The abdominal aorta is normal in in caliber. Pelvic Organs: Unremarkable. Bones/soft tissues: No acute osseous abnormality noted. Mild degenerative grade 1 anterolisthesis of L4 on L5. Multilevel degenerative disc disease and size cutter ior facet arthropathy of the lower lumbar spine noted. Postoperative changes of the lower cervical spine. Other: None. IMPRESSION: 1. No acute traumatic injury in the chest, abdomen or pelvis. ATED BY: HATTIE TAMAYO MD DICTATED DATE/TIME: 02/17/241653 SIGNED BY: HATTIE TAMAYO MD SIGNED DATE/TIME: 02/17/241653 CC: Discharged With: Self, Relative Critical Care Note Critical Care Time?: Yes (35 min-critical care time only) I personally scribed for SHELL ALCANTAR DO ([email or web address]) on 02/17/24 at 17:30. Electronically submitted by Jessica Julien ([email or web address]). I personally scribed for SHELL ALCANTAR DO ([email or web address]) on 02/17/24 at 17:33. Electronically submitted by Curly Quinn ([email or web address]). SHELL ALCANTAR DO Feb 17, 2024 15:40
--- NOTE | 2024-02-17 16:32 | DVH ---
CLINICAL INDICATION: FALL INJURY TECHNIQUE: 3 radiographic views of the left ankle were obtained. Comparison: None FINDINGS/IMPRESSION: There is no evidence of acute fracture or dislocation. The visualized joint space is well maintained. Small plantar calcaneal bony spur. The alignment is anatomical. There is no radiopaque foreign body.
--- NOTE | 2024-02-17 16:33 | DVH ---
CLINICAL INDICATION: FALL INJURY TECHNIQUE: 2 radiographic views of the left forearm were obtained. Comparison: None FINDINGS/IMPRESSION: There is no evidence of acute fracture or dislocation. The visualized joint space is well maintained. The alignment is anatomical. There is no radiopaque foreign body. Soft tissue edema over the dorsum of the proximal forearm.
--- NOTE | 2024-02-17 16:35 | DVH ---
CT HEAD WITHOUT CONTRAST INDICATION: FALL INJURY EXAM DATE: 02/17/2024 04:06 PM COMPARISON: CT STROKE CTH on DOS: 06/26/23, MRI BRAIN HEAD WO CONTRAST on DOS: 04/14/23, CT HEAD WITHOU T CONTRAST on DOS: 04/14/23 RADIATION DOSE: CTDIvol: 54 mGy, DLP: 962 mGy*cm PROCEDURE: CT scans of the head were obtained from the vertex to the skull base. Sagittal and coronal reconstructions were provided. All CT scans at this medical facility are performed using dose modulation techniques as appropriate t o a performed exam including the following: Automated exposure control was utilized; adjustment of th e MA and/or KV according to patient size; and use of iterative reconstruction technique. FINDINGS: The brain shows normal morphology and monet-white matter differentiation, without intracr anial hemorrhage, extra-axial fluid collection, mass effect or acute large vessel infarct. The ventri cles are normal in size. The basal cisterns are patent. The skull and visible facial bones are intact . The paranasal sinuses, mastoid air cells and middle ear cavities are well-aerated. The soft tissues of the scalp are unremarkable. IMPRESSION: No acute intracranial abnormality.
[2024-02-17 16:36] LABS: Basophils # (auto) 0 10 ^3/uL (0-0.2); Basophils % (auto) 0.5 % (0.0-2.0); Eosinophils # (auto) 0.2 10 ^3/uL (0-0.8); Eosinophils % (auto) 3.5 % (0.0-7.0); Hematocrit 42.7 % (36.0-46.0); Hemoglobin 14.1 g/dL (12.2-16.2); Lymphocytes # (auto) 1.7 10 ^3/uL (0.4-5.4); Lymphocytes % (auto) 27.4 % (10.0-50.0); Mean Corpuscular Hemoglobin 30.9 pg (28.0-32.0); Mean Corpuscular Volume 93.5 fL (80.0-100.0); Monocytes # (auto) 0.5 10 ^3/uL (0-1.3); Monocytes % (auto) 7.7 % (0.0-12.0); Neutrophils # (auto) 3.8 10 ^3/uL (1.6-8.6); Neutrophils % (auto) 60.9 % (37.0-80.0); Nucleated Red Blood Cells % 0.1 %; Platelet Count (auto) 237 10^3/uL (140-450); Red Blood Cells 4.57 10^6/uL (4.0-5.20); Red Cell Distribution Width 14.1 % (11.8-14.3); White Blood Cell 6.2 10^3/uL (4.4-10.8)
[2024-02-17 16:51] LABS: Alanine Aminotransferase 30 U/L (7-40); Albumin 4.5 g/dL (3.2-4.8); Alkaline Phosphatase 78 U/L (46-116); Anion Gap 9 (5-15); Aspartate Aminotransferase 24 U/L (13-40); BUN/Creatinine Ratio 21.7 (10.0-20.0); Blood Urea Nitrogen 20 mg/dL (9-23); Calcium 10.1 mg/dL (8.7-10.4); Carbon Dioxide 24 mmol/L (20-31); Creatine Kinase IFCC 133 U/L (34-145); Glucose 87 mg/dL (74-106); Sodium 144 mmol/L (136-145)
[2024-02-17 16:52] LABS: Total Protein 6.9 g/dL (5.7-8.2)
--- NOTE | 2024-02-17 16:54 | DVH ---
Procedure: CT MAXILLOFACIAL WITHOUT Study Date and Requested Time: 02/17/2024 04:06 PM History: FALL INJURY Comparison: CT angiography Head and neck 06/26/2011 Dose: CTDI: 21.66 mGy DLP: 622.24 mGycm Technique: Multiplanar images obtained through the face without intravenous contrast. Findings: No evidence of acute fracture or other significant osseous abnormality. Chronic fracture of the maxil mikael spine . Orbits and globes grossly unremarkable. Minimal mucoperiosteal thickening of the ethmoid and maxillary sinuses. The remainder of the paranasa l sinuses are clear. The mastoids are clear. Nasal septum midline position. Nasal cavity and visuali zed nasopharynx and oropharynx grossly unremarkable with no evidence of focal lesion. Surrounding fac ial soft tissues grossly unremarkable with no evidence of soft tissue swelling or mass. Postsurgical changes of C5-C6 and C6-C7. Impression: Unremarkable maxillofacial CT.
[2024-02-17 16:56] LABS: Bilirubin, Total 0.2 mg/dL (0.2-1.0); Chloride 111 mmol/L (98-107)
--- NOTE | 2024-02-17 16:57 | DVH ---
Procedure: CT CHST AB PEL WO CON-NO IV/ORAL 02/17/2024 04:06 PM Indication: FALL INJURY Comparison Study: None available at time of dictation. Technique: Axial images were obtained and reformatted in coronal and sagittal planes. All CT scans at this medical facility are performed using dose modulation techniques as appropriate t o a performed exam including the following: Automated exposure control was utilized; adjustment of th e MA and/or KV according to patient size; and use of iterative reconstruction technique. CT Dose: CTDI volume is 66.03 mGy. Dose-length product is 3676.6 mGy*cm FINDINGS: Lower neck: Unremarkable. Cardiomediastinal: The heart is normal in size. Aorta is normal in caliber. No mediastinal lymphadeno kimani. Lungs: No focal pulmonary opacity. No pleural effusion. No pneumothorax. Hepatobiliary: Unremarkable. Spleen: Unremarkable. Pancreas: Unremarkable. Adrenal Glands: Unremarkable. tract: The kidneys are normal in size bilaterally without hydronephrosis or nephrolithiasis. The urinary bladder is unremarkable. GI tract: The stomach is grossly normal in appearance. No evidence of small bowel obstruction. Scatte red colonic diverticula are noted without evidence of diverticulitis. The appendix is not identified . Surgical clips in the right lower quadrant suggesting prior appendectomy. Lymphatics: No mesenteric, retroperitoneal or periportal lymphadenopathy. Vasculature: The abdominal aorta is normal in in caliber. Pelvic Organs: Unremarkable. Bones/soft tissues: No acute osseous abnormality noted. Mild degenerative grade 1 anterolisthesis of L4 on L5. Multilevel degenerative disc disease and posterior facet arthropathy of the lower lumbar spine noted. Postoperative changes of the lower cervical spine. Other: None. IMPRESSION: 1. No acute traumatic injury in the chest, abdomen or pelvis.
--- NOTE | 2024-02-17 16:58 | DVH ---
CT CERVICAL WITHOUT CONTRAST INDICATION: FALL INJURY EXAM DATE: 02/17/2024 04:06 PM COMPARISON: CT HEAD WITHOUT CONTRAST on DOS: 04/14/23 RADIATION DOSE: CTDIvol: 21 mGy, DLP: 622 mGy*cm PROCEDURE: Utilizing the CT scanner, contiguous axial images were obtained through the cervical spine . Coronal and sagittal reformatted images were then generated. All CT scans at this medical facility are performed using dose modulation techniques as appropriate t o a performed exam including the following: Automated exposure control was utilized; adjustment of th e MA and/or KV according to patient size; and use of iterative reconstruction technique. FINDINGS: Alignment at the craniocervical junction is maintained. C5-7 spinal hardware and disc repla cement is noted. The cortical margins are intact. The vertebral body heights and cervical alignment a re normal. The facet joints show normal alignment without fracture. The intervertebral disc spaces ar e narrow and degenerative. The paraspinal soft tissues appear normal. On axial images: there is multilevel posterior disc osteophyte complex with mild central canal narrow ing at C5-6 with moderate bilateral neural foramina narrowing. Facet and uncincate spondylosis is see n. IMPRESSION: No cervical spine fracture or subluxation.
[2024-02-17 18:15] LABS: Urine Bacteria None Seen /hpf (None Seen)
[2024-02-17 18:36] LABS: Urine Blood Negative /uL (Negative); Urine Clarity Clear (Clear); Urine Color Yellow (Yellow); Urine Mucus FEW (None Seen); Urine Protein, UAD TRACE (Negative); Urine Specific Gravity 1.032 (1.001-1.035); Urine Urobilinogen Normal (Negative); Urine WBC 1 /hpf (0 - 5)
[2024-02-17 18:53] VITALS: BP 134/62; PULSE 77; RESP 17; TEMP 98.7; O2SAT 97
== END 2024-02-17 19:01 | disposition home or self-care (01) ==
LOC: ER 14:14
DX: S00.83XA Contusion of other part of head, initial encounter (principal); S50.12XA Contusion of left forearm, initial encounter; D64.9 Anemia, unspecified; Z79.82 Long term (current) use of aspirin; Z79.899 Other long term (current) drug therapy; Z90.49 Acquired absence of other specified parts of digestive tract; Z88.0 Allergy status to penicillin; W11.XXXA Fall on and from ladder, initial encounter; Y93.89 Activity, other specified; Y92.89 Other specified places as the place of occurrence of the external cause; Y99.8 Other external cause status
CPT/HCPCS: 36415; 70450; 70486; 71250; 72125; 73090; 73610; 74176; 80053; 81001; 82550; 83605; 84484; 85025; 93005